=== PATIENT | male | born 1960 | race Caucasian/White ===

== ENCOUNTER 2018-04-05 07:42 | Day surgery (SDC) | payer OTHER ==
[~2018-04-05 07:42] MED LIST: PROPOFOL INJ 200 MG/20 ML VIAL IV ONE
[2018-04-05 10:18] VITALS: BP 129/80
--- NOTE | 2018-04-05 14:05 | Operative Report ---
Operative Report DATE OF SURGERY: 04/05/18 Operative Report: The risks, benefits and alternatives of the procedure including the risk of bleeding, perforation requiring surgery are explained to the patient in detail and informed consent was obtained. Patient was taken back to the endoscopy suite and placed in the left, lateral decubital position. Timeout was called. Propofol medication is administered. Rectal examination is done which did not reveal any masses, tears or fissures. An Olympus videoscope was introduced into the patient's rectum. The scope was then carefully advanced all the way to the cecum. The cecum was identified by the usual anatomical landmarks of the ileocecal valve as well as the appendiceal office. Photodocumentation is obtained. The scope was then sequentially pulled back via the various segments of the colon including the ascending colon, hepatic flexure, transverse colon, splenic flexure, descending colon and finally to the rectosigmoid portions of the colon. Retroflexion maneuver was performed. PREOPERATIVE DIAGNOSIS: Personal history of polyp POSTOPERATIVE DIAGNOSIS: Colon polyp noted in the area of the hepatic flexure that was removed via biopsy forceps. Internal hemorrhoids OPERATION: Colonoscopy with biopsy SURGEON: JEFF SALAS ANESTHESIA: LMAC TISSUE REMOVED OR ALTERED: As noted above. COMPLICATIONS: None. ESTIMATED BLOOD LOSS: None. INTRAOPERATIVE FINDINGS: As noted above. PROCEDURE: Patient tolerated the procedure well. No immediate postprocedure complications are noted. Patient discharged in good condition. Discharge date 04/05/2018. Discharge diet: Regular. Discharge activity: Regular. 2-3-week follow-up to discuss findings. 3-5-year surveillance colonoscopy. Patient is instructed to call the office or proceed to the emergency room should there be any further problems or questions. I will wait on the pathology.
== END 2018-04-05 09:20 | disposition home or self-care (01) ==
LOC: END 07:42
PROVIDERS: ATTEND Internal Medicine Gastroenterology
DX: K63.5 Polyp of colon (principal)
CPT/HCPCS: 45380; 88305 ×2; J2704; 811